=== PATIENT | female | born 1970 | race Caucasian/White ===

== ENCOUNTER 2021-05-26 21:29 | Emergency (ER) | payer BC, OTHER ==
[2021-05-26 21:33] VITALS: BP 139/76; PULSE 81; RESP 19; TEMP 98.1
--- NOTE | 2021-05-26 21:47 | ED ---
Upper Extremity HPI - General Chief Complaint: Extremity Injury, Upper Stated Complaint: Fall-R & L wrist injury Time Seen by Provider: 05/26/21 21:34 Source: patient, family, RN notes reviewed, old records reviewed Mode of arrival: ambulatory Limitations: no limitations - History of Present Illness Initial Comments: This is a 51-year-old [facility] Patient presents today for evaluation regards to a fall on Thanksgiving dinner she fell backwards landing on her hands and wrists. Patient does have severe pain to both wrists. Left worse than right. No other injury noted from the fall she did wait a few hours after fall before realizing that she had difficulty with similar pain she is experiencing in her wrist. Presents to ER with for evaluation. No medical history takes no medications MD Complaint: Injury to:: left, right, wrist -: hour(s) Other Extremity Injury: Wrist: Left, Right Other Injuries: none Handedness: right Place: home Improves With: none Worsens With: none Context: fall, direct blow Associated Symptoms: denies other symptoms Treatments Prior to Arrival: other (none) - Related Data Allergies Allergy/AdvReac Type Severity Reaction Status Date / Time No Known Allergies Allergy Verified 05/26/21 21:34 Review of Systems ROS Statement: Those systems with pertinent positive or pertinent negative responses have been documented in the HPI. ROS Other: All systems not noted in ROS Statement are negative. Past Medical History Past Medical History: No Reported History History of Any Multi-Drug Resistant Organisms: None Reported Past Surgical History: No Surgical Hx Reported Past Psychological History: No Psychological Hx Reported Smoking Status: Never smoker Past Alcohol Use History: None Reported Past Drug Use History: None Reported General Exam Limitations: no limitations General appearance: alert, in no apparent distress Head exam: Present: atraumatic, normocephalic, normal inspection Eye exam: Present: normal appearance, PERRL, EOMI. Absent: scleral icterus, conjunctival injection, periorbital swelling ENT exam: Present: normal exam, mucous membranes moist Neck exam: Present: normal inspection. Absent: tenderness, meningismus, lymphadenopathy Respiratory exam: Present: normal lung sounds bilaterally. Absent: respiratory distress, wheezes, rales, rhonchi, stridor Cardiovascular Exam: Present: regular rate, normal rhythm, normal heart sounds. Absent: systolic murmur, diastolic murmur, rubs, gallop, clicks GI/Abdominal exam: Present: soft, normal bowel sounds. Absent: distended, tenderness, guarding, rebound, rigid Extremities exam: Present: normal inspection, full ROM, normal capillary refill, other (Bilateral wrist tenderness and swelling). Absent: tenderness, pedal edema, joint swelling, calf tenderness Back exam: Present: normal inspection Neurological exam: Present: alert, oriented X3, CN II-XII intact Psychiatric exam: Present: normal affect, normal mood Skin exam: Present: warm, dry, intact, normal color. Absent: rash Course Vital Signs 05/26/21 21:30 Temperature 98.1 F Pulse Rate 81 Respiratory 19 Rate Blood Pressure 139/76 O2 Sat by Pulse 98 Oximetry - Reevaluation(s) Reevaluation #1: 05/27/21 02:31 Medical record is reviewed Reevaluation #2: 05/27/21 02:31 Patient not requiring anything for pain Reevaluation #3: 05/27/21 02:31 Patient informed results and questions have been answered Procedures - Orthopedic Splinting/Casting Injury #1 Side: right Upper Extremity Injury Location: wrist Upper Extremity Immobilizer: wrist splint Medical Decision Making - Medical Decision Making 51 female to the ER for evaluation she presents today for evaluation regards to wrist pain. Patient did sustain right radius fracture, also significant contusion to left wrist. Patient splinted and can be discharged home - Radiology Data Radiology results: report reviewed (X-ray of bilateral wrist is positive for right radius fracture), image reviewed Disposition Clinical Impression: Fracture of right distal radius, Fall, Contusion of left wrist Disposition: HOME SELF-CARE Condition: Good Instructions (If sedation given, give patient instructions): Wrist Fracture in Adults (ED), Suspected Fracture (ED) Is patient prescribed a controlled substance at d/c from ED?: No Referrals: None,Stated [Primary Care Provider] - 1-2 days
--- NOTE | 2021-05-26 21:57 | XR ---
EXAMINATION TYPE: XR wrist complete BILATERAL DATE OF EXAM: 05/26/2021 COMPARISON: NONE HISTORY: 51 years Female. STUDY INDICATION GIVEN: fall . TECHNIQUE: 8 views of the right and left wrists IMPRESSION: Right wrist: Acute slightly displaced fracture of the distal radius which appears to extend into the radiocarpal joint. No findings to suggest carpal bone fracture. Left wrist: No acute articular or osseous abnormalities appreciated.
[2021-05-26] MEDS ORDERED: ACETAMINOPHEN TAB 500 MG TAB PO STA (22:23)
[2021-05-26] MEDS ORDERED: IBUPROFEN 600 MG TAB PO STA (22:23)
== END 2021-05-26 22:45 | disposition home or self-care (01) ==
LOC: EC 21:29
DX: S52.501A Unspecified fracture of the lower end of right radius, initial encounter for closed fracture (principal); S60.212A Contusion of left wrist, initial encounter; W01.0XXA Fall on same level from slipping, tripping and stumbling without subsequent striking against object, initial encounter; Y92.89 Other specified places as the place of occurrence of the external cause
CPT/HCPCS: 99283